=== PATIENT | female | born 1990 | race Caucasian/White ===

== ENCOUNTER 2021-10-29 00:57 | Emergency (ER) | payer BC ==
[2021-10-29 02:43] LABS: CARBON DIOXIDE,CO2 26.8 mmol/L (21.0-32.0); POTASSIUM,K 3.9 mmol/L (3.5-5.1)
== END 2021-10-29 01:59 | disposition home or self-care (01) ==
LOC: MW.ED 00:57
DX: U07.1 COVID-19 (principal); E66.9 Obesity, unspecified; Z68.43 Body mass index [BMI] 50.0-59.9, adult; Z88.0 Allergy status to penicillin; Z88.1 Allergy status to other antibiotic agents
CPT/HCPCS: 36415; 80053; 99283; 99284